=== PATIENT | male | born 1955 | race Caucasian/White ===

== ENCOUNTER → 2016-09-06 | Outpatient (CLI) | payer SELFPAY ==
[2016-09-06 15:18] LABS: MEAN CORPUSCULAR HEMOGLOBIN 21.2 pg (27.0-33.0); MEAN CORPUSCULAR HGB CONC 28.3 g/dl (32.0-36.5); MEAN CORPUSCULAR VOLUME 74.8 fl (80.0-96.0); RED CELL DISTRIBUTION WIDTH 20.4 % (11.5-14.5); WHITE BLOOD COUNT 10.7 K/mm3 (4.0-10.0)
[2016-09-06 15:47] LABS: ALBUMIN 3.2 GM/DL (3.2-5.2); ALBUMIN/GLOBULIN RATIO 0.76 (1.00-1.93); BILIRUBIN,TOTAL 0.3 MG/DL (0.2-1.0); CALCIUM LEVEL 8.5 MG/DL (8.5-10.1); CREATININE FOR GFR 1.32 MG/DL (0.70-1.30); GLOMERULAR FILTRATION RATE 59.1 (>56); TOTAL PROTEIN 7.4 GM/DL (6.4-8.2)
== END ==
LOC: M LAB 14:41
PROVIDERS: ATTEND Family Medicine
DX: E11.69 Type 2 diabetes mellitus with other specified complication (principal)

== ENCOUNTER → 2016-11-18 | Outpatient (CLI) | payer SELFPAY ==
--- NOTE | 2016-12-06 00:49 | ECWPNPC ---
PATIENT NAME: IVON BARTON : 1955 GENDER: MALE VISIT DATE: 11/18/2016 DISCHARGE DATE: 11/18/16 1530 VISIT LOCKED DATE TIME: PHYSICIAN: RAMIN BENÍTEZ RESOURCE: RAMIN BENÍTEZ REASON FOR APPOINTMENT 1. BACK PAIN HISTORY OF PRESENT ILLNESS FALL RISK SCREENING: SCREENING :NO FALLS IN THE PAST YEAR PAIN SCREENING: PATIENT HAS A COMPLAINT OF ACUTE OR CHRONIC PAIN :YES TODAY'S VISIT: NOTES: REFERRED BY DR ISAMAR MITCHELL FOR LOW BACK AND LEG PAIN. RATES PAIN TODAY 7/10. DESCRIBES PAIN WAS INJURED ON THE JOB 1993 WAS LIFTING A HEAVY CASTING AND HURT. WAS SEEN BY PT, PAIN MANAGEMENT, HAD INJECTIONS, ACCUPUNCTURE, TPI, NOTED NO IMPROVEMET AND NOW FEELS BACK IS GETTING WORK. PAIN HAS BEEN GENERALLY INCREASING. HAS PAIN IN CALVES WITH CRAMPING BOTH LEGS. HAS N/T IN FEET, AND SCIATIC PAIN R>L. NO SADDLE NUMBNESS. OCCASIONAL CONSP WITH VICODAN. NO RECENT FALLS. HAS SEEN DR GARCIA VASCULAR SURGEON- [facility] , [place] BUT NOT CANDIDATE IS ON XARALTO (X1 YEAR). . CURRENT MEDICATIONS TAKING NEURONTIN 800 MG TABLET 1 TABLET ORALLY THREE TIMES A DAY TAKING AMIODARONE HCL 400 MG TABLET 2 TABLET ORALLY THREE TIMES DAILY TAKING ATENOLOL 50 MG TABLET 1 TABLET ORALLY ONCE A DAY TAKING PANTOPRAZOLE SODIUM 40 MG TABLET DELAYED RELEASE 1 TABLET ORALLY BID TAKING DIGOXIN 250 MCG TABLET 1 TABLET ORALLY ONCE A DAY TAKING XARELTO 20 MG TABLET 1 TABLET WITH FOOD ORALLY ONCE A DAY TAKING TRESIBA FLEXTOUCH 100 UNIT/ML SOLUTION PEN-INJECTOR SUBCUTANEOUS TAKING NOVOLOG FLEXPEN 100 UNIT/ML SOLUTION PEN-INJECTOR SUBCUTANEOUS TAKING MENS 50+ MULTI VITAMIN/MIN - TABLET ORALLY TAKING GABAPENTIN 800 MG TABLET 1 TABLET ORALLY THREE TIMES A DAY NOT-TAKING ZETIA 10 MG TABLET 1 TABLET ORALLY ONCE A DAY NOT-TAKING ASPIRIN 325 MG TABLET DELAYED RELEASE 1 TABLET ORALLY ONCE A DAY NOT-TAKING TRAMADOL HCL 50 MG TABLET 1 TAB ORALLY EVERY 6 HOURS NEEDED/MMD#4 MEDICATION LIST REVIEWED AND RECONCILED WITH THE PATIENT PAST MEDICAL HISTORY NEURALGIA SLEEP DISTURBANCE VISION PROBLEMS 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 SURGICAL HISTORY BILAT ARTERIES IN LEGS REPLACED 8 TIMES 2015 FAMILY HISTORY FATHER: 40 YRS, DIAGNOSED WITH CANCER MOTHER: 71 YRS, DIAGNOSED WITH CANCER SOCIAL HISTORY GENERAL: TOBACCO USE ARE YOU A:CURRENT SMOKER HOW MANY CIGARETTES A DAY DO YOU SMOKE?31 OR MORE HOW SOON AFTER YOU WAKE UP DO YOU SMOKE YOUR FIRST CIGARETTE?WITHIN 5 MIN HOW OFTEN DO YOU SMOKE CIGARETTES?EVERY DAY PATIENT COUNSELED ON THE DANGERS OF TOBACCO USE AND URGED TO QUIT:11/18/2016 ARE YOU INTERESTED IN QUITTING?NOT READY TO QUIT COUNSELED THE PATIENT ON SMOKING EFFECTS, EDUCATION [id number]/19/2017 ALCOHOL SCREENING POINTS0 INTERPRETATIONNEGATIVE CAFFEINE CAFFEINE USE?YES REVIEW OF SYSTEMS CONSTITUTIONAL: ANY CHANGE IN YOUR MEDICAL CONDITION? YES. PT STATES HE HAS A LESION ON RIGHT CHEEK X 3 YEARS. PT STATES LESION HAS GROWN IN SIZE AND LESION CHANGES FORM FROM TIME TO TIME. PT SUSPECTS LESION IS CANCER, BUT HAS NOT HAD BX DONE PT HAS NO HEALTH INSURANCE. . CHILLS NO . FEVER NO . INFECTION: DO YOU HAVE NEW INFECTIONS? NO . DO YOU HAVE HISTORY OF MRSA? NO . MUSCULOSKELETAL: ANY NEW PATTERNS OF PAIN OR NUMBNESS? YES. PT STATES HE INJURED HIMSELF AT WORK [id number], SOUGHT MEDICAL [place] THROUGH [employer]. PT STATES HE HAS NOT WORKED SINCE 1992. PT HAS BEEN SEEING Aleida MITCHELL PCP, PT WAS REFERED HERE FOR CHRONIC PAIN CONTROL . SYTEMIC LUPUS NO . GASTROENTEROLOGY: ANY NEW CHANGE IN BOWEL CONTROL? NO . BARRETTS ESOPHAGUS NO . CIRRHOSIS NO . HEPATITIS NO . LIVER FAILURE NO . ACID REFLUX NO . UNEXPLAINED WEIGHT LOSS NO . GENITOURINARY: ANY NEW CHANGE IN BLADDER CONTROL? NO . IS THERE A CHANCE YOU COULD BE ? NO . HEMATOLOGY/LYMPH: DO YOU TAKE ANY BLOOD THINNERS? (FOR EXAMPLE- COUMADIN, PLAVIX, AGGRENOX, PLATEL, PRADAXA, OR XARELTO) YES, XARELTO . WHEN WAS YOUR LAST DOSE? DATE: TIME: . LOW PLATELET COUNT NO . SICKLE CELL DISEASE NO . VON WILLIEBRANDS NO . FACTOR V LEIDEN NO . THALLASEMIA NO . ANEMIA NO . EASY BRUISING NO . NEUROLOGY: HAVE YOU FALLEN IN THE PAST 6 MONTHS? NO . ANY NEW EXTREMITY NUMBNESS OR WEAKNESS? NO . HEAD INJURY NO . DEMENTIA NO . CEREBRAL PALSY NO . MULTIPLE SCLEROSIS NO . DIZZINESS NO . HEADACHE NO . STROKES NO . VERTIGO NO . CARDIOLOGY: DO YOU HAVE A PACEMAKER OR DEFIBRILLATOR? NO . ANGINA NO . HEART ATTACK HAD CATH - NEEDED STENTS BEFORE LEG SURGERY. . HEART SURGERY NO . CONGESTIVE HEART FAILURE/FLUID OVERLOAD NO . CHEST PAIN NO . CLAUDICATION BILAT LOWER EXTREMITIES - HAS MULTIPLE STENTS . HIGH BLOOD PRESSURE NO . IRREGULAR HEART BEAT NO BUT WAS PUT ON XARALTO FOR THIS . RESPIRATORY: HAVE YOU BEEN SICK IN THE PAST WEEK? NO . FEVER NO . FLU LIKE SYMPTOMS? NO . CPAP NO . BYPAP NO . ASTHMA NO . EMPHYSEMA NO . CHRONIC LUNG DISEASES NO . SHORTNESS OF BREATH ON EXERTION NO . DO YOU USE ANY TYPE OF TOBACCO (SMOKE, SMOKELESS, CHEW)? YES - NOT INTERESTED IN QUITTING . COUGH NO . SNORING NO . INTEGUMENTARY: DO YOU HAVE ANY RASHES OR OPEN SORES? NO . ALLERGIC/IMMUNO: ARE YOU ALLERGIC TO SHELLFISH OR IV DYE? NO . ANY NEW ALLERGIES? NO . PSYCHIATRIC: DO YOU HAVE THOUGHTS OF HURTING YOURSELF OR SOMEONE ELSE? NO . ARE YOU ABUSED, NEGLECTED, OR IN AN UNSAFE ENVIRONMENT? NO . ENDOCRINOLOGY: ARE YOU DIABETIC? YES WAS JUST DX IN LAST YEAR - 214 TODAY. . THYROID DISORDER NO . OTHER: DO YOU NEED ANY PRESCRIPTIONS? NO . IF YES, PLEASE LIST: ____ . ANY NEW PROBLEMS WITH YOUR MEDICATIONS? NO . WHEN DID YOU LAST EAT? ____ . WHEN DID YOU LAST DRINK? ____ . WHAT DID YOU LAST DRINK? ____ . NAME OF PERSON DRIVING YOU HOME? ____ . DO YOU HAVE ANY OTHER QUESTIONS OR CONCERNS NO . PSYCHOLOGY: BECKS DEPRESSION INVENTORY . DENIES SUICIDAL OR HOMICIDAL IDEATION . REVIEWED BY: PROVIDER: RAMIN RAMIREZ . VITAL SIGNS WT 180.4 LBS, HT 67", BMI 28.25 INDEX, BP 133/67 MM HG, HR 65 /MIN, RR 16 /MIN, TEMP 98.3 F, OXYGEN SAT % 97%, SAFE IN ENV? (Y/N) Y, NA INITIALS TL 1329, REVIEWED BY: EM. EXAMINATION GENERAL EXAMINATION: PSYCHALERT , ORIENTED X 3 , SOME ANXIETY NOTED. HEENT:NORMOCEPHALIC, NO LYMPHADENOPATHY, NO THYROMEGY. LUNGS:CLEAR TO AUSCULTATION BILATERALLY, DECREASED AIR ENTRY AT BASES, NO WHEEZES. HEART:HEART RATE REGULAR, NO CAROTID BRUITS,, NORMAL S1S2, NO MURMURS, CLICK OR RUBS. MUSCULOSKELETAL:CAN FLEX TO 15 DEGREES, EXTEND TO 15 DEGREES. TENDER TO PALPATION ACROSS THE LUMBOSACRAL AXIS AND BILATERALLY AT SACROILIAC JOINTS. NO PAIN WITH SLR. , MUSCLE STRENGTH TESTING 5/5 BILATERAL LOWER EXTREMITIES. SLOW TO RISE TO STANDING POSITION. GAIT WIDE BASED, NONANTALGIC. SOME DISCOMFORT OVER BACK AND HIPS BILATERALLY WITH PELVIC COMPRESSION. POSITIVE FPR PAIN IN BACK WITH ANN-MARIE'S TESTING. EXTREMITIES:CLUBING, DUSKY TOES. DP PULSES TRCE BILATRALLY. TRACE EDEMA NOTED BILATERAL LOWER EXTREMITI. NEUROLOGIC EXAM:DECRESED SENSATION IN STOCKING/GLOVE PATTERN OVER BILATERAL FEET TO LEVEL OF ANKLE. DTR'S TRACE TO 1+ BILATERAL UPPER AND LOWER EXTREMITIES. 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 BEGIN PLAN FOR SMOKING CESSATION. DISPOSITION & COMMUNICATION FOLLOW UP 26-28 DAYS (REASON: MED MANAGEMENT/XRAY) ELECTRONICALLY SIGNED BY BRENNAN WOLFF ON 12/05/2016 AT 06:26 PM EDT DISCLAIMER : THIS IS A VISIT SUMMARY EXTRACTED FROM THE [employer] CHART. IT IS NOT A COPY OF THE [employer] PROGRESS NOTE. MTDD
== END ==
LOC: M PAIN 13:20
PROVIDERS: ATTEND Nurse Practitioner Family
DX: G89.29 Other chronic pain (principal); M54.42 Lumbago with sciatica, left side; M54.41 Lumbago with sciatica, right side; E11.42 Type 2 diabetes mellitus with diabetic polyneuropathy; I73.9 Peripheral vascular disease, unspecified; I25.2 Old myocardial infarction; J44.9 Chronic obstructive pulmonary disease, unspecified; F17.210 Nicotine dependence, cigarettes, uncomplicated; L98.9 Disorder of the skin and subcutaneous tissue, unspecified; Z79.01 Long term (current) use of anticoagulants; Z79.4 Long term (current) use of insulin; Z79.899 Other long term (current) drug therapy

== ENCOUNTER → 2016-11-18 | Outpatient (CLI) | payer SELFPAY ==
--- NOTE | 2016-11-18 16:22 | REP ---
Clinical: Lower back pain and sciatica. Technique: AP, lateral, flexion/extension, bilateral oblique and coned-down views of the lumbosacral spine. Findings: Alignment and lordosis is maintained. There is no evidence for acute fracture / compression injury or subluxation. No spondylolysis or spondylolisthesis. Moderate multilevel degenerative changes include marginal early osteophyte formation, endplate sclerosis, disc space narrowing and hypertrophic facet changes. Impression: Moderate multilevel degenerative changes. No acute fracture / compression injury or subluxation. Signed by Valdez Strickland MD 11/18/2016 04:13 P
== END ==
LOC: M RAD 15:43
PROVIDERS: ATTEND Nurse Practitioner Family
DX: M54.42 Lumbago with sciatica, left side (principal)

== ENCOUNTER → 2016-12-16 | Outpatient (CLI) | payer SELFPAY ==
--- NOTE | 2016-12-31 00:20 | ECWPNPC ---
PATIENT NAME: IVON BARTON : 1955 GENDER: MALE VISIT DATE: 12/16/2016 DISCHARGE DATE: 12/16/16 1447 VISIT LOCKED DATE TIME: PHYSICIAN: RAMIN BENÍTEZ RESOURCE: RAMIN BENÍTEZ HISTORY OF PRESENT ILLNESS HISTORY OF PRESENT ILLNESS: PAIN THE PATIENT DESCRIBES THE PAIN... FALL RISK SCREENING: SCREENING :NO FALLS IN THE PAST YEAR TODAY'S VISIT: NOTES: RATES PAIN TODAY 9/10. LEFT FOOT/GREAT TOE - WAS PUT ON AN ABX - DOES NOT KNOW THE NAME. NOTES GENERALIZED PAIN IN LOW BACK AND BOTH LEGS BUT PAIN WORSE IMMEDIATELY AFTER ATTEMPTING TO WALK WITH TEETEE OF PAIN IN LEFT CALF AND FOOT. . CURRENT MEDICATIONS TAKING AMIODARONE HCL 400 MG TABLET 2 TABLET ORALLY THREE TIMES DAILY, NOTES: PT NOT SURE OF DOSE OR FREQUENCY TAKING ATENOLOL 50 MG TABLET 1 TABLET ORALLY ONCE A DAY TAKING PANTOPRAZOLE SODIUM 40 MG TABLET DELAYED RELEASE 1 TABLET ORALLY BID TAKING DIGOXIN 250 MCG TABLET 1 TABLET ORALLY ONCE A DAY TAKING XARELTO 20 MG TABLET 1 TABLET WITH FOOD ORALLY ONCE A DAY TAKING TRESIBA FLEXTOUCH 100 UNIT/ML SOLUTION PEN-INJECTOR SUBCUTANEOUS TAKING NOVOLOG FLEXPEN 100 UNIT/ML SOLUTION PEN-INJECTOR SUBCUTANEOUS TAKING MENS 50+ MULTI VITAMIN/MIN - TABLET ORALLY TAKING GABAPENTIN 800 MG TABLET 1 TABLET ORALLY THREE TIMES A DAY NOT-TAKING NEURONTIN 800 MG TABLET 1 TABLET ORALLY THREE TIMES A DAY NOT-TAKING ZETIA 10 MG TABLET 1 TABLET ORALLY ONCE A DAY NOT-TAKING ASPIRIN 325 MG TABLET DELAYED RELEASE 1 TABLET ORALLY ONCE A DAY NOT-TAKING TRAMADOL HCL 50 MG TABLET 1 TAB ORALLY EVERY 6 HOURS NEEDED/MMD#4 MEDICATION LIST REVIEWED AND RECONCILED WITH THE PATIENT PAST MEDICAL HISTORY NEURALGIA SLEEP DISTURBANCE VISION PROBLEMS 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 SURGICAL HISTORY BILAT ARTERIES IN LEGS REPLACED 8 TIMES 2015 FAMILY HISTORY FATHER: 40 YRS, DIAGNOSED WITH CANCER MOTHER: 71 YRS, DIAGNOSED WITH CANCER SOCIAL HISTORY GENERAL: TOBACCO USE ARE YOU A:CURRENT SMOKER HOW MANY CIGARETTES A DAY DO YOU SMOKE?31 OR MORE HOW SOON AFTER YOU WAKE UP DO YOU SMOKE YOUR FIRST CIGARETTE?WITHIN 5 MIN HOW OFTEN DO YOU SMOKE CIGARETTES?EVERY DAY PATIENT COUNSELED ON THE DANGERS OF TOBACCO USE AND URGED TO QUIT:11/18/2016 ARE YOU INTERESTED IN QUITTING?NOT READY TO QUIT COUNSELED THE PATIENT ON SMOKING EFFECTS, EDUCATION [id number]/19/2017 ALCOHOL SCREENING DID YOU HAVE A DRINK CONTAINING ALCOHOL IN THE PAST YEAR?NO POINTS0 INTERPRETATIONNEGATIVE CAFFEINE CAFFEINE USE?YES HOSPITALIZATION/MAJOR DIAGNOSTIC PROCEDURE SURGERIES REVIEW OF SYSTEMS REVIEWED BY: PROVIDER: RAMIN RAMIREZ . CONSTITUTIONAL: ANY CHANGE IN YOUR MEDICAL CONDITION? YES, SKIN CANCER RIGHT FACE, INFECTION GREAT TOE LEFT FOOT . CHILLS NO . FEVER NO . INFECTION: DO YOU HAVE NEW INFECTIONS? NO . DO YOU HAVE HISTORY OF MRSA? NO . MUSCULOSKELETAL: ANY NEW PATTERNS OF PAIN OR NUMBNESS? NO . GASTROENTEROLOGY: ANY NEW CHANGE IN BOWEL CONTROL? NO . GENITOURINARY: ANY NEW CHANGE IN BLADDER CONTROL? NO . IS THERE A CHANCE YOU COULD BE ? NO . HEMATOLOGY/LYMPH: DO YOU TAKE ANY BLOOD THINNERS? (FOR EXAMPLE- COUMADIN, PLAVIX, AGGRENOX, PLATEL, PRADAXA, OR XARELTO) NO . WHEN WAS YOUR LAST DOSE? DATE: TIME: . NEUROLOGY: HAVE YOU FALLEN IN THE PAST 6 MONTHS? NO . ANY NEW EXTREMITY NUMBNESS OR WEAKNESS? NO . CARDIOLOGY: DO YOU HAVE A PACEMAKER OR DEFIBRILLATOR? NO . RESPIRATORY: HAVE YOU BEEN SICK IN THE PAST WEEK? NO . FEVER NO . FLU LIKE SYMPTOMS? NO . COUGH NO . INTEGUMENTARY: DO YOU HAVE ANY RASHES OR OPEN SORES? NO . ALLERGIC/IMMUNO: ARE YOU ALLERGIC TO SHELLFISH OR IV DYE? NO . ANY NEW ALLERGIES? NO . PSYCHIATRIC: DO YOU HAVE THOUGHTS OF HURTING YOURSELF OR SOMEONE ELSE? NO . ARE YOU ABUSED, NEGLECTED, OR IN AN UNSAFE ENVIRONMENT? NO . ENDOCRINOLOGY: ARE YOU DIABETIC? YES - 185 MOST RECENT . OTHER: DO YOU NEED ANY PRESCRIPTIONS? YES . IF YES, PLEASE LIST: PAIN MEDICATION AND CHANGE TO GABAPENTIN . ANY NEW PROBLEMS WITH YOUR MEDICATIONS? NO . WHEN DID YOU LAST EAT? ____ . WHEN DID YOU LAST DRINK? ____ . WHAT DID YOU LAST DRINK? ____ . NAME OF PERSON DRIVING YOU HOME? ____ . DO YOU HAVE ANY OTHER QUESTIONS OR CONCERNS NO . PSYCHOLOGY: HIGH STRESS LEVEL OVER FINANCIAL SITUATION . VITAL SIGNS WT 180.6 LBS, HT 67", BMI 28.28 INDEX, BP 127/59 MM HG, HR 68 /MIN, RR 18 /MIN, TEMP 98.2 F, OXYGEN SAT % 96%, NA INITIALS TL 1358, REVIEWED BY: JUSTIN. EXAMINATION GENERAL EXAMINATION: PSYCHALERT , ORIENTED X 3 , APPROPRIATE MOOD AND AFFECT , HARD OF HEARING. FACE:LARGE BLACK SKIN LESION FROM NASOLABIAL FOLD ACROSS CHEEKAPPROX 3 CM IN DIAMETER. LUNGS:SCATTERED WHEEZES, DECREASED BREATH SOUNDS AT BASES. HEART:HEART RATE REGULAR. MUSCULOSKELETAL:PALPATION: POSITIVE FOR PAIN OVER L/S SPINE. POSITIVE FOR PAIN OVER L/S PARSPINALS. EXTREMITIES:LEFT FOOT INSTECTED - COLD, DUSKY BLUE IN COLOR, AREA OFERYTHEMA NOTED ALONG MEDIAL ASPECT OF LEFT GREAT TOE NAIL. NO DRAINAGE. AREA EDEMATOUS. WEARING MUDDY SNEAKERS - NO SOCKS. 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 CLINICAL NOTES: ISTOP REGISTRY REVIEWED AND DEMNOSTRATES COMPLLIANCE. BRINGS IN MEDICATIONS WHICH IS APPROPRIATE FOR WHAT WAS DISPENSED. RECENT URINE TOXICOLOGY REVIEWED. NO UNAUTHORIZED MEDICATIONS. NO ILLICIT SUBSTANCES AND PRESCRIBED MEDICATIONS WERE PRESENT. PROCEDURE CODES FA211 ESTABILISHED PATIENT [facility] CHARGE DISPOSITION & COMMUNICATION FOLLOW UP 26-28 DAYS (REASON: LEG PAIN) ELECTRONICALLY SIGNED BY BRENNAN WOLFF ON 12/30/2016 AT 05:28 PM EDT DISCLAIMER : THIS IS A VISIT SUMMARY EXTRACTED FROM THE [employer] CHART. IT IS NOT A COPY OF THE [employer] PROGRESS NOTE. JAVY
== END ==
LOC: M PAIN 14:00
PROVIDERS: ATTEND Nurse Practitioner Family
DX: M54.42 Lumbago with sciatica, left side (principal); M54.41 Lumbago with sciatica, right side; G89.29 Other chronic pain; E11.42 Type 2 diabetes mellitus with diabetic polyneuropathy; I73.9 Peripheral vascular disease, unspecified; Z79.4 Long term (current) use of insulin; Z79.899 Other long term (current) drug therapy

== ENCOUNTER → 2017-01-11 | Outpatient (CLI) | payer SELFPAY ==
--- NOTE | 2017-02-04 01:18 | ECWPNPC ---
PATIENT NAME: IVON BARTON : 1955 GENDER: MALE VISIT DATE: 01/11/2017 DISCHARGE DATE: 01/11/17 1258 VISIT LOCKED DATE TIME: PHYSICIAN: RAMIN BENÍTEZ RESOURCE: RAMIN BENÍTEZ REASON FOR APPOINTMENT 1. LEG PAIN HISTORY OF PRESENT ILLNESS HISTORY OF PRESENT ILLNESS: PAIN THE PATIENT DESCRIBES THE PAIN... FALL RISK SCREENING: SCREENING :NO FALLS IN THE PAST YEAR TODAY'S VISIT: NOTES: RATES PAIN TODAY 3/10. DESCRIBES PAIN CONSTANT, BURNING, SHARP AND STABBING. PAIN IS CENTERED ACROSS THE LOW BACK WITH RADIATION DOWN BOTH LEGS TO THE FEET. . CURRENT MEDICATIONS TAKING AMIODARONE HCL 400 MG TABLET 2 TABLET ORALLY THREE TIMES DAILY, NOTES: PT NOT SURE OF DOSE OR FREQUENCY TAKING ATENOLOL 50 MG TABLET 1 TABLET ORALLY ONCE A DAY TAKING PANTOPRAZOLE SODIUM 40 MG TABLET DELAYED RELEASE 1 TABLET ORALLY BID TAKING DIGOXIN 250 MCG TABLET 1 TABLET ORALLY ONCE A DAY TAKING XARELTO 20 MG TABLET 1 TABLET WITH FOOD ORALLY ONCE A DAY TAKING TRESIBA FLEXTOUCH 100 UNIT/ML SOLUTION PEN-INJECTOR SUBCUTANEOUS TAKING MENS 50+ MULTI VITAMIN/MIN - TABLET ORALLY TAKING GABAPENTIN 800 MG TABLET 1 TABLET ORALLY THREE TIMES A DAY TAKING NORCO 10-325 MG TABLET 1 TABLET NEEDED ORALLY EVERY 6 -8 HRS PRN PAIN MDD=3 TAKING HUMALOG MIX 50/50 KWIKPEN (50-50) 100 UNIT/ML SUSPENSION SUBCUTANEOUS NOT-TAKING NOVOLOG FLEXPEN 100 UNIT/ML SOLUTION PEN-INJECTOR SUBCUTANEOUS NOT-TAKING NEURONTIN 800 MG TABLET 1 TABLET ORALLY THREE TIMES A DAY NOT-TAKING ZETIA 10 MG TABLET 1 TABLET ORALLY ONCE A DAY NOT-TAKING ASPIRIN 325 MG TABLET DELAYED RELEASE 1 TABLET ORALLY ONCE A DAY NOT-TAKING TRAMADOL HCL 50 MG TABLET 1 TAB ORALLY EVERY 6 HOURS NEEDED/MMD#4 MEDICATION LIST REVIEWED AND RECONCILED WITH THE PATIENT PAST MEDICAL HISTORY NEURALGIA SLEEP DISTURBANCE VISION PROBLEMS 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 SOCIAL HISTORY GENERAL: TOBACCO USE ARE YOU A:CURRENT SMOKER HOW MANY CIGARETTES A DAY DO YOU SMOKE?31 OR MORE HOW SOON AFTER YOU WAKE UP DO YOU SMOKE YOUR FIRST CIGARETTE?WITHIN 5 MIN HOW OFTEN DO YOU SMOKE CIGARETTES?EVERY DAY PATIENT COUNSELED ON THE DANGERS OF TOBACCO USE AND URGED TO QUIT:01/11/2017 ARE YOU INTERESTED IN QUITTING?NOT READY TO QUIT COUNSELED THE PATIENT ON SMOKING EFFECTS, EDUCATION [id number]/12/2017 ALCOHOL SCREENING DID YOU HAVE A DRINK CONTAINING ALCOHOL IN THE PAST YEAR?NO POINTS0 INTERPRETATIONNEGATIVE CAFFEINE CAFFEINE USE?YES REVIEW OF SYSTEMS REVIEWED BY: PROVIDER: RAMIN RAMIREZ . CONSTITUTIONAL: ANY CHANGE IN YOUR MEDICAL CONDITION? NO . CHILLS NO . FEVER NO . INFECTION: DO YOU HAVE NEW INFECTIONS? NO . DO YOU HAVE HISTORY OF MRSA? NO . MUSCULOSKELETAL: ANY NEW PATTERNS OF PAIN OR NUMBNESS? NO . GASTROENTEROLOGY: ANY NEW CHANGE IN BOWEL CONTROL? YES,CONSTIPATION . GENITOURINARY: ANY NEW CHANGE IN BLADDER CONTROL? NO . IS THERE A CHANCE YOU COULD BE ? NO . HEMATOLOGY/LYMPH: DO YOU TAKE ANY BLOOD THINNERS? (FOR EXAMPLE- COUMADIN, PLAVIX, AGGRENOX, PLATEL, PRADAXA, OR XARELTO) YES - XARALTO . WHEN WAS YOUR LAST DOSE? DATE: TIME: 01/11/17@0730 . NEUROLOGY: HAVE YOU FALLEN IN THE PAST 6 MONTHS? NO . ANY NEW EXTREMITY NUMBNESS OR WEAKNESS? NO . CARDIOLOGY: DO YOU HAVE A PACEMAKER OR DEFIBRILLATOR? NO . RESPIRATORY: HAVE YOU BEEN SICK IN THE PAST WEEK? NO . FEVER NO . FLU LIKE SYMPTOMS? NO . COUGH NO . INTEGUMENTARY: DO YOU HAVE ANY RASHES OR OPEN SORES? YES . ALLERGIC/IMMUNO: ARE YOU ALLERGIC TO SHELLFISH OR IV DYE? YES . ANY NEW ALLERGIES? NO . PSYCHIATRIC: DO YOU HAVE THOUGHTS OF HURTING YOURSELF OR SOMEONE ELSE? NO . ARE YOU ABUSED, NEGLECTED, OR IN AN UNSAFE ENVIRONMENT? NO . ENDOCRINOLOGY: ARE YOU DIABETIC? NO . OTHER: DO YOU NEED ANY PRESCRIPTIONS? NO . IF YES, PLEASE LIST: ____ . ANY NEW PROBLEMS WITH YOUR MEDICATIONS? NO . WHEN DID YOU LAST EAT? ____ . WHEN DID YOU LAST DRINK? ____ . WHAT DID YOU LAST DRINK? ____ . NAME OF PERSON DRIVING YOU HOME? ____ . DO YOU HAVE ANY OTHER QUESTIONS OR CONCERNS NO . VITAL SIGNS WT 180.2 LBS, HT 67", BMI 28.22 INDEX, BP 114/54 MM HG, HR 62 /MIN, RR 16 /MIN, TEMP 98.2 F, OXYGEN SAT % 96%, NA INITIALS SC 12:09, REVIEWED BY: LUI. EXAMINATION GENERAL EXAMINATION: PSYCHALERT , ORIENTED X 3 , APPROPRIATE MOOD AND AFFECT , HARD OF HEARING. FACE:LARGE BLACK SKIN LESION FROM NASOLABIAL FOLD ACROSS CHEEKAPPROX 3 CM IN DIAMETER. LUNGS:SCATTERED WHEEZES, DECREASED BREATH SOUNDS AT BASES. HEART:HEART RATE REGULAR. MUSCULOSKELETAL:PALPATION: POSITIVE FOR PAIN OVER L/S SPINE. POSITIVE FOR PAIN OVER L/S PARSPINALS. EXTREMITIES:LEFT FOOT- COLD, DUSKY BLUE IN COLOR, AREA OFERYTHEMA NOTED ALONG MEDIAL ASPECT OF LEFT GREAT TOE NAIL. NO DRAINAGE. AREA EDEMATOUS.. 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 CLINICAL NOTES: ISTOP REGISTRY REVIEWED AND DEMNOSTRATES COMPLLIANCE. BRINGS IN MEDICATIONS WHICH IS APPROPRIATE FOR WHAT WAS DISPENSED., RISKS AND BENEFITS OF NARCOTIC/OPIOD MEDICATIONS WERE REVIEWED WITH PATIENT - THIS INCLUDES BUT IS NOT LIMITED TO RISK OF DEPENDANCE/DEVELOPMENT OF ADDICTION, MOOD DISTURBANCE AND DEPRESSION, OSTEOPOROSIS, HORMONAL AND LABIDAL CHANGES, RESPIRATORY DEPRESSION AND . PATIENT IS ADVISED NOT TO DRIVE WHILE ON THESE MEDICATIONS. PROCEDURE CODES FA211 ESTABILISHED PATIENT [facility] CHARGE DISPOSITION & COMMUNICATION FOLLOW UP 26-28 DAYS (REASON: LEGS AND BACK) ELECTRONICALLY SIGNED BY BRENNAN WOLFF ON 02/03/2017 AT 05:35 PM EDT DISCLAIMER : THIS IS A VISIT SUMMARY EXTRACTED FROM THE [employer] CHART. IT IS NOT A COPY OF THE [employer] PROGRESS NOTE. MTDD
== END ==
LOC: M PAIN 12:00
PROVIDERS: ATTEND Nurse Practitioner Family
DX: G89.29 Other chronic pain (principal); M54.42 Lumbago with sciatica, left side; M54.41 Lumbago with sciatica, right side; K59.00 Constipation, unspecified; E11.42 Type 2 diabetes mellitus with diabetic polyneuropathy; I11.9 Hypertensive heart disease without heart failure; J43.9 Emphysema, unspecified; I73.9 Peripheral vascular disease, unspecified; K21.9 Gastro-esophageal reflux disease without esophagitis; I25.2 Old myocardial infarction; F17.210 Nicotine dependence, cigarettes, uncomplicated; Z79.01 Long term (current) use of anticoagulants; Z79.4 Long term (current) use of insulin; Z79.899 Other long term (current) drug therapy

== ENCOUNTER → 2017-02-06 | Outpatient (CLI) | payer SELFPAY ==
--- NOTE | 2017-02-25 23:33 | ECWPNPC ---
PATIENT NAME: IVON BARTON : 1955 GENDER: MALE VISIT DATE: 02/06/2017 DISCHARGE DATE: 02/06/17 1112 VISIT LOCKED DATE TIME: PHYSICIAN: RAMIN BENÍTEZ RESOURCE: RAMIN BENÍTEZ REASON FOR APPOINTMENT 1. 26-28 DAYS HISTORY OF PRESENT ILLNESS HISTORY OF PRESENT ILLNESS: PAIN THE PATIENT DESCRIBES THE PAIN... FALL RISK SCREENING: SCREENING :NO FALLS IN THE PAST YEAR TODAY'S VISIT: NOTES: RATES PAIN TODAY 9/10. DESCRIBES PAIN CONSTANT AND BURNING. PAIN EXTENDS FROM LOW BACK TO FEET. IS HAVING NEW PAIN IN LEFT FOOTACROSS THE DORSUM. LEFT GREAT TOE STILL WITH INFLAMMED AREA.. CURRENT MEDICATIONS TAKING AMIODARONE HCL 400 MG TABLET 2 TABLET ORALLY THREE TIMES DAILY, NOTES: PT NOT SURE OF DOSE OR FREQUENCY TAKING ATENOLOL 50 MG TABLET 1 TABLET ORALLY ONCE A DAY TAKING PANTOPRAZOLE SODIUM 40 MG TABLET DELAYED RELEASE 1 TABLET ORALLY BID TAKING DIGOXIN 250 MCG TABLET 1 TABLET ORALLY ONCE A DAY TAKING XARELTO 20 MG TABLET 1 TABLET WITH FOOD ORALLY ONCE A DAY TAKING TRESIBA FLEXTOUCH 100 UNIT/ML SOLUTION PEN-INJECTOR SUBCUTANEOUS TAKING MENS 50+ MULTI VITAMIN/MIN - TABLET ORALLY TAKING GABAPENTIN 800 MG TABLET 1 TABLET ORALLY THREE TIMES A DAY TAKING HUMALOG MIX 50/50 KWIKPEN (50-50) 100 UNIT/ML SUSPENSION SUBCUTANEOUS TAKING NORCO 5-325 MG TABLET 1 TABLET NEEDED ORALLY EVERY 6 -8 HRS PRN PAIN MDD=3 NOT-TAKING LIDOCAINE HCL 4 % SOLUTION DIRECTED EXTERNALLY APPLY SMALL AMOUNT TO PAINFUL AREAS OF FEET Q 6 HRS PRN PAIN NOT-TAKING NOVOLOG FLEXPEN 100 UNIT/ML SOLUTION PEN-INJECTOR SUBCUTANEOUS NOT-TAKING NEURONTIN 800 MG TABLET 1 TABLET ORALLY THREE TIMES A DAY NOT-TAKING ZETIA 10 MG TABLET 1 TABLET ORALLY ONCE A DAY NOT-TAKING ASPIRIN 325 MG TABLET DELAYED RELEASE 1 TABLET ORALLY ONCE A DAY NOT-TAKING TRAMADOL HCL 50 MG TABLET 1 TAB ORALLY EVERY 6 HOURS NEEDED/MMD#4 MEDICATION LIST REVIEWED AND RECONCILED WITH THE PATIENT PAST MEDICAL HISTORY NEURALGIA SLEEP DISTURBANCE VISION PROBLEMS 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 CONSTITUTIONAL: ANY CHANGE IN YOUR MEDICAL CONDITION? NO . CHILLS NO . FEVER NO . INFECTION: DO YOU HAVE NEW INFECTIONS? NO . DO YOU HAVE HISTORY OF MRSA? NO . MUSCULOSKELETAL: ANY NEW PATTERNS OF PAIN OR NUMBNESS? YES, PT C/O LEFT FOOT PAIN . GASTROENTEROLOGY: ANY NEW CHANGE IN BOWEL CONTROL? YES, WAS CONSTIPATED, ALL BETTER NOW . GENITOURINARY: ANY NEW CHANGE IN BLADDER CONTROL? NO . IS THERE A CHANCE YOU COULD BE ? NO . HEMATOLOGY/LYMPH: DO YOU TAKE ANY BLOOD THINNERS? (FOR EXAMPLE- COUMADIN, PLAVIX, AGGRENOX, PLATEL, PRADAXA, OR XARELTO) YES, XARELTO . WHEN WAS YOUR LAST DOSE? DATE: TIME: . NEUROLOGY: HAVE YOU FALLEN IN THE PAST 6 MONTHS? NO . ANY NEW EXTREMITY NUMBNESS OR WEAKNESS? NO . CARDIOLOGY: DO YOU HAVE A PACEMAKER OR DEFIBRILLATOR? NO . RESPIRATORY: HAVE YOU BEEN SICK IN THE PAST WEEK? NO . FEVER NO . FLU LIKE SYMPTOMS? NO . COUGH NO . INTEGUMENTARY: DO YOU HAVE ANY RASHES OR OPEN SORES? YES, TO RIGHT CHEEK, LESION . ALLERGIC/IMMUNO: ARE YOU ALLERGIC TO SHELLFISH OR IV DYE? NO . ANY NEW ALLERGIES? NO . PSYCHIATRIC: DO YOU HAVE THOUGHTS OF HURTING YOURSELF OR SOMEONE ELSE? NO . ARE YOU ABUSED, NEGLECTED, OR IN AN UNSAFE ENVIRONMENT? NO . ENDOCRINOLOGY: ARE YOU DIABETIC? YES . OTHER: DO YOU NEED ANY PRESCRIPTIONS? YES, PAIN PILLS . IF YES, PLEASE LIST: ____ . ANY NEW PROBLEMS WITH YOUR MEDICATIONS? NO . WHEN DID YOU LAST EAT? ____ . WHEN DID YOU LAST DRINK? ____ . WHAT DID YOU LAST DRINK? ____ . NAME OF PERSON DRIVING YOU HOME? ____ . DO YOU HAVE ANY OTHER QUESTIONS OR CONCERNS NO . SKIN: DO YOU HAVE ANY RASHES OR OPEN SORES? LEFT GREAT TOE . VITAL SIGNS WT 178.4 LBS, HT 67", BMI 27.94 INDEX, BP 127/64 MM HG, HR 58 /MIN, RR 18 /MIN, TEMP 98.3 F, OXYGEN SAT % 96%, SAFE IN ENV? (Y/N) Y, NA INITIALS SC 10:50, REVIEWED BY: LILIANA. EXAMINATION GENERAL EXAMINATION: PSYCHALERT , ORIENTED X 3 , APPROPRIATE MOOD AND AFFECT , HARD OF HEARING. FACE:LARGE BLACK SKIN LESION FROM NASOLABIAL FOLD ACROSS CHEEKAPPROX 3 CM IN DIAMETER. LUNGS:SCATTERED WHEEZES, DECREASED BREATH SOUNDS AT BASES. HEART:HEART RATE REGULAR. MUSCULOSKELETAL:PALPATION: POSITIVE FOR PAIN OVER L/S SPINE. POSITIVE FOR PAIN OVER L/S PARSPINALS. EXTREMITIES:LEFT FOOT- FERYTHEMA NOTED ALONG MEDIAL ASPECT OF LEFT GREAT TOE NAIL. NO DRAINAGE. BOTH FEET WARM, PINK HYPERSENSITIVE. 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 CLINICAL NOTES: ISTOP REGISTRY REVIEWED AND DEMNOSTRATES COMPLLIANCE. BRINGS IN MEDICATIONS WHICH IS APPROPRIATE FOR WHAT WAS DISPENSED. RECENT URINE TOXICOLOGY REVIEWED. NO UNAUTHORIZED MEDICATIONS. NO ILLICIT SUBSTANCES AND PRESCRIBED MEDICATIONS WERE PRESENT. PROCEDURE CODES FA211 ESTABILISHED PATIENT [facility] CHARGE DISPOSITION & COMMUNICATION FOLLOW UP 1 MONTH (REASON: LEG/BACK PAIN) ELECTRONICALLY SIGNED BY BRENNAN WOLFF ON 02/25/2017 AT 03:17 PM EDT DISCLAIMER : THIS IS A VISIT SUMMARY EXTRACTED FROM THE [employer] CHART. IT IS NOT A COPY OF THE [employer] PROGRESS NOTE. MTDD
== END ==
LOC: M PAIN 10:40
PROVIDERS: ATTEND Nurse Practitioner Family
DX: G89.29 Other chronic pain (principal); M54.42 Lumbago with sciatica, left side; M54.41 Lumbago with sciatica, right side; I73.9 Peripheral vascular disease, unspecified; E11.42 Type 2 diabetes mellitus with diabetic polyneuropathy; K21.9 Gastro-esophageal reflux disease without esophagitis; I25.2 Old myocardial infarction; J43.9 Emphysema, unspecified; I10 Essential (primary) hypertension; F17.200 Nicotine dependence, unspecified, uncomplicated; L98.9 Disorder of the skin and subcutaneous tissue, unspecified; Z79.01 Long term (current) use of anticoagulants; Z79.4 Long term (current) use of insulin; Z79.891 Long term (current) use of opiate analgesic; Z79.899 Other long term (current) drug therapy

== ENCOUNTER → 2017-03-07 | Outpatient (CLI) | payer SELFPAY ==
--- NOTE | 2017-03-26 00:45 | ECWPNPC ---
PATIENT NAME: IVON BARTON : 1955 GENDER: MALE VISIT DATE: 03/07/2017 DISCHARGE DATE: 03/07/17 1346 VISIT LOCKED DATE TIME: PHYSICIAN: RAMIN BENÍTEZ RESOURCE: RAMIN BENÍTEZ REASON FOR APPOINTMENT 1. LEG/BACK PAIN HISTORY OF PRESENT ILLNESS HISTORY OF PRESENT ILLNESS: PAIN THE PATIENT DESCRIBES THE PAIN... FALL RISK SCREENING: SCREENING :NO FALLS IN THE PAST YEAR TODAY'S VISIT: NOTES: PAIN LEVEL 6/10. DESCRIBES THE PAIN STINGING AND BURNING. PAIN IS CENTERED IN LOW BACK AND LEGSHAS CONTINUED TO HAVE ISSUES WITH VERY SORE AREAS OVER THE TOES AND AT THE LEFT GREAT TOENAIL. CURRENT MEDICATIONS TAKING AMIODARONE HCL 400 MG TABLET 2 TABLET ORALLY THREE TIMES DAILY, NOTES: PT NOT SURE OF DOSE OR FREQUENCY TAKING ATENOLOL 50 MG TABLET 1 TABLET ORALLY ONCE A DAY TAKING PANTOPRAZOLE SODIUM 40 MG TABLET DELAYED RELEASE 1 TABLET ORALLY BID TAKING DIGOXIN 250 MCG TABLET 1 TABLET ORALLY ONCE A DAY TAKING XARELTO 20 MG TABLET 1 TABLET WITH FOOD ORALLY ONCE A DAY TAKING TRESIBA FLEXTOUCH 100 UNIT/ML SOLUTION PEN-INJECTOR SUBCUTANEOUS TAKING MENS 50+ MULTI VITAMIN/MIN - TABLET ORALLY TAKING HUMALOG MIX 50/50 KWIKPEN (50-50) 100 UNIT/ML SUSPENSION SUBCUTANEOUS TAKING NORCO 5-325 MG TABLET 1 TABLET NEEDED ORALLY Q 6-8 HOURS PRN PAIN MDD=4 TAKING GABAPENTIN 800 MG TABLET 1 TABLET ORALLY THREE TIMES A DAY NOT-TAKING LIDOCAINE HCL 4 % SOLUTION DIRECTED EXTERNALLY APPLY SMALL AMOUNT TO PAINFUL AREAS OF FEET Q 6 HRS PRN PAIN NOT-TAKING NOVOLOG FLEXPEN 100 UNIT/ML SOLUTION PEN-INJECTOR SUBCUTANEOUS NOT-TAKING NEURONTIN 800 MG TABLET 1 TABLET ORALLY THREE TIMES A DAY NOT-TAKING ZETIA 10 MG TABLET 1 TABLET ORALLY ONCE A DAY NOT-TAKING ASPIRIN 325 MG TABLET DELAYED RELEASE 1 TABLET ORALLY ONCE A DAY NOT-TAKING TRAMADOL HCL 50 MG TABLET 1 TAB ORALLY EVERY 6 HOURS NEEDED/MMD#4 MEDICATION LIST REVIEWED AND RECONCILED WITH THE PATIENT PAST MEDICAL HISTORY NEURALGIA SLEEP DISTURBANCE VISION PROBLEMS 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 REVIEW OF SYSTEMS REVIEWED BY: PROVIDER: RAMIN RAMIREZ . CONSTITUTIONAL: ANY CHANGE IN YOUR MEDICAL CONDITION? NO . CHILLS NO . FEVER NO . INFECTION: DO YOU HAVE NEW INFECTIONS? NO . DO YOU HAVE HISTORY OF MRSA? NO . MUSCULOSKELETAL: ANY NEW PATTERNS OF PAIN OR NUMBNESS? NO . GASTROENTEROLOGY: ANY NEW CHANGE IN BOWEL CONTROL? NO . GENITOURINARY: ANY NEW CHANGE IN BLADDER CONTROL? NO . IS THERE A CHANCE YOU COULD BE ? NO . HEMATOLOGY/LYMPH: DO YOU TAKE ANY BLOOD THINNERS? (FOR EXAMPLE- COUMADIN, PLAVIX, AGGRENOX, PLATEL, PRADAXA, OR XARELTO) YES . WHEN WAS YOUR LAST DOSE? DATE: TIME: . NEUROLOGY: HAVE YOU FALLEN IN THE PAST 6 MONTHS? NO . ANY NEW EXTREMITY NUMBNESS OR WEAKNESS? NO . CARDIOLOGY: DO YOU HAVE A PACEMAKER OR DEFIBRILLATOR? NO . RESPIRATORY: HAVE YOU BEEN SICK IN THE PAST WEEK? NO . FEVER NO . FLU LIKE SYMPTOMS? NO . COUGH NO . INTEGUMENTARY: DO YOU HAVE ANY RASHES OR OPEN SORES? NO . ALLERGIC/IMMUNO: ARE YOU ALLERGIC TO SHELLFISH OR IV DYE? NO . ANY NEW ALLERGIES? NO . PSYCHIATRIC: DO YOU HAVE THOUGHTS OF HURTING YOURSELF OR SOMEONE ELSE? NO . ARE YOU ABUSED, NEGLECTED, OR IN AN UNSAFE ENVIRONMENT? NO . ENDOCRINOLOGY: ARE YOU DIABETIC? YES . OTHER: DO YOU NEED ANY PRESCRIPTIONS? YES . IF YES, PLEASE LIST: PAIN MED . ANY NEW PROBLEMS WITH YOUR MEDICATIONS? NO . WHEN DID YOU LAST EAT? ____ . WHEN DID YOU LAST DRINK? ____ . WHAT DID YOU LAST DRINK? ____ . NAME OF PERSON DRIVING YOU HOME? ____ . DO YOU HAVE ANY OTHER QUESTIONS OR CONCERNS NO . VITAL SIGNS WT 177.6 LBS, HT 67", BMI 27.81 INDEX, BP 89/49 MM HG, HR 64 /MIN, RR 16 /MIN, TEMP 97.6 F, OXYGEN SAT % 95%, NA INITIALS SC 12:59. EXAMINATION GENERAL EXAMINATION: PSYCHALERT , ORIENTED X 3 , APPROPRIATE MOOD AND AFFECT , HARD OF HEARING. FACE:LARGE BLACK SKIN LESION FROM NASOLABIAL FOLD ACROSS CHEEKAPPROX 3 CM IN DIAMETER. LUNGS:SCATTERED WHEEZES, DECREASED BREATH SOUNDS AT BASES. HEART:HEART RATE REGULAR,, II/ SYSTOLIC MURMUR. MUSCULOSKELETAL:PALPATION: POSITIVE FOR PAIN OVER L/S SPINE. POSITIVE FOR PAIN OVER L/S PARSPINALS. EXTREMITIES:LEFT FOOT- ERYTHEMA NOTED ALONG MEDIAL ASPECT OF LEFT GREAT TOE NAIL. NO DRAINAGE. BOTH FEET WARM, PINK HYPERSENSITIVE. 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 STOP SMOKING,TRIGGER POINT INJECTION MATERIAL WAS PRINTED. CLINICAL NOTES: ISTOP REGISTRY REVIEWED AND DEMNOSTRATES COMPLLIANCE (#[id number]). BRINGS IN MEDICATIONS WHICH IS APPROPRIATE FOR WHAT WAS DISPENSED. RECENT URINE TOXICOLOGY REVIEWED. NO UNAUTHORIZED MEDICATIONS. NO ILLICIT SUBSTANCES AND PRESCRIBED MEDICATIONS WERE PRESENT. DISCUSSED IN DEPTH EFFECTS OF TOBACCO/SMOKING ON THE CIRCULATION AND HEALING IN HIS LEGS. PREVENTIVE MEDICINE REVIEWED PRE PROCEDURE CARE AND TPI INJECTION / PT EXPRESSED UNDERSTANDING. PROCEDURE CODES FA211 ESTABILISHED PATIENT [facility] CHARGE DISPOSITION & COMMUNICATION FOLLOW UP AFTER INJECTION (REASON: CHECK AUTH FOR TPI) ELECTRONICALLY SIGNED BY BRENNAN WOLFF ON 03/24/2017 AT 08:53 AM EDT DISCLAIMER : THIS IS A VISIT SUMMARY EXTRACTED FROM THE [email or web address] CHART. IT IS NOT A COPY OF THE [email or web address] PROGRESS NOTE. JAVY
== END ==
LOC: M PAIN 13:00
PROVIDERS: ATTEND Nurse Practitioner Family
DX: M54.42 Lumbago with sciatica, left side (principal); M54.41 Lumbago with sciatica, right side; G89.29 Other chronic pain; E11.42 Type 2 diabetes mellitus with diabetic polyneuropathy; I73.9 Peripheral vascular disease, unspecified; Z79.4 Long term (current) use of insulin; Z79.891 Long term (current) use of opiate analgesic; Z79.01 Long term (current) use of anticoagulants; Z79.899 Other long term (current) drug therapy

== ENCOUNTER → 2017-03-20 | Outpatient (CLI) | payer SELFPAY | LOC: M PAIN 15:00 | PROVIDERS: ATTEND Anesthesiology | DX: Z53.29 Procedure and treatment not carried out because of patient's decision for other reasons (principal) ==

== ENCOUNTER → 2017-05-18 | Outpatient (CLI) | payer SELFPAY ==
--- NOTE | 2017-06-02 00:47 | ECWPNPC ---
PATIENT NAME: IVON BARTON : 1955 GENDER: MALE VISIT DATE: 05/18/2017 DISCHARGE DATE: 05/18/17 1354 VISIT LOCKED DATE TIME: PHYSICIAN: RAMIN BENÍTEZ RESOURCE: RAMIN BENÍTEZ REASON FOR APPOINTMENT 1. BACK AND LEG PAIN HISTORY OF PRESENT ILLNESS HISTORY OF PRESENT ILLNESS: PAIN THE PATIENT DESCRIBES THE PAIN... FALL RISK SCREENING: SCREENING :NO FALLS IN THE PAST YEAR TODAY'S VISIT: NOTES: RATES PAIN TODAY 8/10. DESCRIBES PAIN CONSTANT. PAIN IS CENTERED ACROSS THE LOW BACK AND INTO BOTH LEGS. REPORTS HAS INFECTIO IN RIGHT FOOT/TOE. IS SOAKING THE FOOT AND APPLYING HYDROGEN PEROXIDE. NOTES INCREASE IN PAIN IN THIS AREA. . CURRENT MEDICATIONS TAKING AMIODARONE HCL 400 MG TABLET 2 TABLET ORALLY TWO TIMES DAILY, NOTES: PT NOT SURE OF DOSE OR FREQUENCY TAKING ATENOLOL 50 MG TABLET 1 TABLET ORALLY ONCE A DAY TAKING PANTOPRAZOLE SODIUM 40 MG TABLET DELAYED RELEASE 1 TABLET ORALLY BID TAKING DIGOXIN 250 MCG TABLET 1 TABLET ORALLY ONCE A DAY TAKING XARELTO 20 MG TABLET 1 TABLET WITH FOOD ORALLY ONCE A DAY TAKING TRESIBA FLEXTOUCH 100 UNIT/ML SOLUTION PEN-INJECTOR 40 UNITS SUBCUTANEOUS DAILY TAKING MENS 50+ MULTI VITAMIN/MIN - TABLET 1 TAB ORALLY DAILY TAKING HUMALOG MIX 50/50 KWIKPEN (50-50) 100 UNIT/ML SUSPENSION PER SLIDING SCALE SUBCUTANEOUS 3-4 TIMES A DAY TAKING GABAPENTIN 800 MG TABLET 1 TABLET ORALLY THREE TIMES A DAY TAKING NORCO 5-325 MG TABLET 1 TABLET NEEDED ORALLY Q 6-8 HOURS PRN PAIN MDD=4 NOT-TAKING DULOXETINE HCL 30 MG CAPSULE DELAYED RELEASE PARTICLES 1 CAPSULE ORALLY DAILY, NOTES: HAS NOT STARTED NOT-TAKING LIDOCAINE HCL 4 % SOLUTION DIRECTED EXTERNALLY APPLY SMALL AMOUNT TO PAINFUL AREAS OF FEET Q 6 HRS PRN PAIN NOT-TAKING NOVOLOG FLEXPEN 100 UNIT/ML SOLUTION PEN-INJECTOR SUBCUTANEOUS NOT-TAKING NEURONTIN 800 MG TABLET 1 TABLET ORALLY THREE TIMES A DAY NOT-TAKING ZETIA 10 MG TABLET 1 TABLET ORALLY ONCE A DAY NOT-TAKING ASPIRIN 325 MG TABLET DELAYED RELEASE 1 TABLET ORALLY ONCE A DAY NOT-TAKING TRAMADOL HCL 50 MG TABLET 1 TAB ORALLY EVERY 6 HOURS NEEDED/MMD#4 MEDICATION LIST REVIEWED AND RECONCILED WITH THE PATIENT PAST MEDICAL HISTORY NEURALGIA SLEEP DISTURBANCE VISION PROBLEMS 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 SOCIAL HISTORY GENERAL: TOBACCO USE ARE YOU A:CURRENT SMOKER HOW MANY CIGARETTES A DAY DO YOU SMOKE?31 OR MORE HOW SOON AFTER YOU WAKE UP DO YOU SMOKE YOUR FIRST CIGARETTE?WITHIN 5 MIN HOW OFTEN DO YOU SMOKE CIGARETTES?EVERY DAY PATIENT COUNSELED ON THE DANGERS OF TOBACCO USE AND URGED TO QUIT:01/11/2017 ARE YOU INTERESTED IN QUITTING?NOT READY TO QUIT COUNSELED THE PATIENT ON SMOKING EFFECTS, EDUCATION [id number] ALCOHOL SCREENING DID YOU HAVE A DRINK CONTAINING ALCOHOL IN THE PAST YEAR?NO POINTS0 INTERPRETATIONNEGATIVE RECREATIONAL DRUG USE DRUG USE?NO CAFFEINE CAFFEINE USE?YES CHRISTIANITY [id number] NONE LANGUAGE LANGUAGES SPOKEN:PERSIAN LEARNING BARRIERS / SPECIAL NEEDS BARRIERS TO LEARNING?NO HEARING IMPAIRED?YES VISION IMPAIRED?YES COGNITIVELY IMPAIRED?NO READINESS TO LEARN?YES LEARNING PREFERENCES?NO LEARNING CAPABILITIES PRESENT?YES EMOTIONAL BARRIERS?NO SPECIAL DEVICES?YES :[employer]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 NEEDED?NO PAIN CLINIC PFS, CLERGY, PUBLIC HEALTH REFERRALS PFS REFERRAL NEEDED?NO CLERGY REFERRAL NEEDED?NO PUBLIC HEALTH REFERRAL NEEDED?NO HAS THE PATIENT BEEN EDUCATED REGARDING HIS/HER PLAN OF CARE?YES HAS THE PATIENT BEEN EDUCATED REGARDING PAIN, THE RISK FOR PAIN, THE IMPORTANCE OF EFFECTIVE PAIN MANAGEMENT, AND THE PAIN ASSESSMENT PROCESS?YES ADVANCE DIRECTIVES HEALTH CARE PROXY?NO WOULD YOU LIKE MORE INFORMATION?NO DO YOU HAVE A DNR?NO WOULD YOU LIKE MORE INFORMATION?NO LIVING WILL?NO WOULD YOU LIKE MORE INFORMATION?NO POWER OF DIATHERMY EQUIPMENT REPAIRER?NO WOULD YOU LIKE MORE INFORMATION?NO REVIEW OF SYSTEMS REVIEWED BY: PROVIDER: . CONSTITUTIONAL: ANY CHANGE IN YOUR MEDICAL CONDITION? NO . CHILLS NO . FEVER NO . INFECTION: DO YOU HAVE NEW INFECTIONS? NO . DO YOU HAVE HISTORY OF MRSA? NO . MUSCULOSKELETAL: ANY NEW PATTERNS OF PAIN OR NUMBNESS? NO . GASTROENTEROLOGY: GENERAL CONSTIPATION UNDER CONTROL . ANY NEW CHANGE IN BOWEL CONTROL? NO . GENITOURINARY: ANY NEW CHANGE IN BLADDER CONTROL? NO . IS THERE A CHANCE YOU COULD BE ? NO . HEMATOLOGY/LYMPH: DO YOU TAKE ANY BLOOD THINNERS? (FOR EXAMPLE- COUMADIN, PLAVIX, AGGRENOX, PLATEL, PRADAXA, OR XARELTO) YES, XARELTO . WHEN WAS YOUR LAST DOSE? DATE:05/18/17 TIME: 0900 . NEUROLOGY: HAVE YOU FALLEN IN THE PAST 6 MONTHS? NO . ANY NEW EXTREMITY NUMBNESS OR WEAKNESS? NO . CARDIOLOGY: DO YOU HAVE A PACEMAKER OR DEFIBRILLATOR? NO . RESPIRATORY: HAVE YOU BEEN SICK IN THE PAST WEEK? NO . FEVER NO . FLU LIKE SYMPTOMS? NO . COUGH NO . INTEGUMENTARY: DO YOU HAVE ANY RASHES OR OPEN SORES? YES, SPOT ON RIGHT SIDE OF FACE . ALLERGIC/IMMUNO: ARE YOU ALLERGIC TO SHELLFISH OR IV DYE? NO . ANY NEW ALLERGIES? NO . PSYCHIATRIC: DO YOU HAVE THOUGHTS OF HURTING YOURSELF OR SOMEONE ELSE? NO . ARE YOU ABUSED, NEGLECTED, OR IN AN UNSAFE ENVIRONMENT? NO . ENDOCRINOLOGY: ARE YOU DIABETIC? YES - VARIABLE 307 - 120 BS . OTHER: DO YOU NEED ANY PRESCRIPTIONS? NO . IF YES, PLEASE LIST: ____ . ANY NEW PROBLEMS WITH YOUR MEDICATIONS? NO . WHEN DID YOU LAST EAT? ____ . WHEN DID YOU LAST DRINK? ____ . WHAT DID YOU LAST DRINK? ____ . NAME OF PERSON DRIVING YOU HOME? ____ . DO YOU HAVE ANY OTHER QUESTIONS OR CONCERNS NO . VITAL SIGNS WT 179.6 LBS, HT 67", BMI 28.13 INDEX, BP 111/57 MM HG, HR 58 /MIN, RR 16 /MIN, TEMP 97.5 F, OXYGEN SAT % 96%, SAFE IN ENV? (Y/N) YES, NA INITIALS TL 1304, REVIEWED BY: OFELIA. EXAMINATION GENERAL EXAMINATION: PSYCHALERT , ORIENTED X 3 , APPROPRIATE MOOD AND AFFECT , HARD OF HEARING. FACE:LARGE BLACK SKIN LESION FROM NASOLABIAL FOLD ACROSS CHEEKAPPROX 3 CM IN DIAMETER. LUNGS:SCATTERED WHEEZES, DECREASED BREATH SOUNDS AT BASES. HEART:HEART RATE REGULAR,, II/ SYSTOLIC MURMUR. MUSCULOSKELETAL:PALPATION: POSITIVE FOR PAIN OVER L/S SPINE. POSITIVE FOR PAIN OVER L/S PARSPINALS. EXTREMITIES:BOTH FEET WARM, PINK HYPERSENSITIVE, , NO EDEMA. SKIN:LEFT GREAT TOE, OVER CALLUS, LATERAL EDGE, RED, EXQUISITELY PAINFUL. NO DRAINAGE TOES SHINEY. 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 PROCEDURE CODES FA211 ESTABILISHED PATIENT [facility] CHARGE DISPOSITION & COMMUNICATION FOLLOW UP 7 WEEKS (REASON: BACK/LEG PAIN) ELECTRONICALLY SIGNED BY BRENNAN WOLFF ON 06/01/2017 AT 06:17 PM EST DISCLAIMER : THIS IS A VISIT SUMMARY EXTRACTED FROM THE [employer] CHART. IT IS NOT A COPY OF THE [employer] PROGRESS NOTE. JAVY
== END ==
LOC: M PAIN 13:00
PROVIDERS: ATTEND Nurse Practitioner Family
DX: G89.29 Other chronic pain (principal); M54.42 Lumbago with sciatica, left side; M54.41 Lumbago with sciatica, right side; E11.42 Type 2 diabetes mellitus with diabetic polyneuropathy; I73.9 Peripheral vascular disease, unspecified; K21.9 Gastro-esophageal reflux disease without esophagitis; I25.2 Old myocardial infarction; F17.210 Nicotine dependence, cigarettes, uncomplicated; Z79.01 Long term (current) use of anticoagulants; Z79.4 Long term (current) use of insulin; Z79.891 Long term (current) use of opiate analgesic; Z79.899 Other long term (current) drug therapy

== ENCOUNTER → 2017-07-05 | Outpatient (CLI) | payer SELFPAY | LOC: M PAIN 13:00 | DX: M54.42 Lumbago with sciatica, left side (principal); M54.41 Lumbago with sciatica, right side; G89.29 Other chronic pain; E11.42 Type 2 diabetes mellitus with diabetic polyneuropathy; I73.9 Peripheral vascular disease, unspecified; I10 Essential (primary) hypertension; K21.9 Gastro-esophageal reflux disease without esophagitis; F17.210 Nicotine dependence, cigarettes, uncomplicated; I25.2 Old myocardial infarction; L08.9 Local infection of the skin and subcutaneous tissue, unspecified; Z79.891 Long term (current) use of opiate analgesic; Z79.2 Long term (current) use of antibiotics; Z79.4 Long term (current) use of insulin; Z79.899 Other long term (current) drug therapy | CPT/HCPCS: G0463 ==

== ENCOUNTER → 2017-08-25 | Outpatient (CLI) | payer SELFPAY | LOC: M PAIN 12:30 | DX: G89.29 Other chronic pain (principal); M54.42 Lumbago with sciatica, left side; M54.41 Lumbago with sciatica, right side; E11.42 Type 2 diabetes mellitus with diabetic polyneuropathy; I73.9 Peripheral vascular disease, unspecified; E66.3 Overweight; K21.9 Gastro-esophageal reflux disease without esophagitis; F17.210 Nicotine dependence, cigarettes, uncomplicated; R42 Dizziness and giddiness; G47.9 Sleep disorder, unspecified; Z85.828 Personal history of other malignant neoplasm of skin; Z79.01 Long term (current) use of anticoagulants; Z79.891 Long term (current) use of opiate analgesic; Z79.4 Long term (current) use of insulin; Z79.899 Other long term (current) drug therapy | CPT/HCPCS: G0463 ==

== ENCOUNTER → 2017-08-29 | Outpatient (CLI) | payer SELFPAY | END | disposition home or self-care (01) | LOC: M PAIN 10:00 | DX: G89.29 Other chronic pain (principal); M54.42 Lumbago with sciatica, left side; M54.41 Lumbago with sciatica, right side; E11.42 Type 2 diabetes mellitus with diabetic polyneuropathy; I73.9 Peripheral vascular disease, unspecified; K21.9 Gastro-esophageal reflux disease without esophagitis; J43.9 Emphysema, unspecified | CPT/HCPCS: G0463 ==

== ENCOUNTER → 2017-09-13 | Outpatient (REF) | payer SELFPAY ==
[2017-09-13 19:11] LABS: BLOOD UREA NITROGEN 22 MG/DL (7-18); CREATININE FOR GFR 1.32 MG/DL (0.70-1.30); GLOMERULAR FILTRATION RATE 58.9 (>49); GLUCOSE, FASTING 261 MG/DL (70-100); SODIUM LEVEL 138 MEQ/L (136-145)
[2017-09-13 19:12] LABS: ALBUMIN 3.4 GM/DL (3.2-5.2); ALBUMIN/GLOBULIN RATIO 0.81 (1.00-1.93); ALKALINE PHOSPHATASE 57 U/L (45-117); ALT/SGPT 41 U/L (12-78); ANION GAP 7 MEQ/L (8-16); AST/SGOT 24 U/L (7-37); BILIRUBIN,TOTAL 0.3 MG/DL (0.2-1.0); CALCIUM LEVEL 8.8 MG/DL (8.8-10.2); CARBON DIOXIDE LEVEL 27 MEQ/L (21-32); CHLORIDE LEVEL 104 MEQ/L (98-107); TOTAL PROTEIN 7.6 GM/DL (6.4-8.2)
[2017-09-13 19:16] LABS: ESTIMATED AVERAGE GLUCOSE 186 MG/DL (60-110); HEMOGLOBIN A1c 8.1 %; POTASSIUM SERUM 5.3 MEQ/L (3.5-5.1)
[2017-09-13 19:27] LABS: HEMATOCRIT 42.4 % (42.0-52.0); HEMOGLOBIN 12.7 g/dl (14.0-18.0); MEAN CORPUSCULAR HEMOGLOBIN 23.6 pg (27.0-33.0); MEAN CORPUSCULAR VOLUME 78.7 fl (80.0-96.0); PLATELET COUNT, AUTOMATED 324 10^3/uL (150-450); RED BLOOD COUNT 5.39 10^6/uL (4.30-6.10); RED CELL DISTRIBUTION WIDTH 22.3 % (11.5-14.5); WHITE BLOOD COUNT 10.9 10^3/uL (4.0-10.0)
== END ==
LOC: M LAB REF 18:22
DX: E11.621 Type 2 diabetes mellitus with foot ulcer (principal)

== ENCOUNTER → 2017-09-26 | Outpatient (CLI) | payer SELFPAY | LOC: M PAIN 13:00 | DX: M54.42 Lumbago with sciatica, left side (principal); M54.41 Lumbago with sciatica, right side; E11.42 Type 2 diabetes mellitus with diabetic polyneuropathy; I73.9 Peripheral vascular disease, unspecified; I48.91 Unspecified atrial fibrillation; I25.2 Old myocardial infarction; Z79.4 Long term (current) use of insulin; Z79.891 Long term (current) use of opiate analgesic; Z79.899 Other long term (current) drug therapy; Z88.8 Allergy status to other drugs, medicaments and biological substances | CPT/HCPCS: G0463 ==

== ENCOUNTER → 2017-10-16 | Outpatient (CLI) | payer SELFPAY ==
[~2017-10-16] MED LIST: HEPARIN 1,000 UNITS/ML 10ML VIAL (FOR RADIOLOGY& DIALYSIS ONLY) As Ordered; ISOVUE-300 61% 50ML VIAL (Q9967) As Ordered; MIDAZOLAM INJ 2 MG/2 ML VIAL (J2250) As Ordered; fentaNYL 100 MCG/2 ML INJECTION (J3010) As Ordered
== END | disposition home or self-care (01) ==
LOC: M IRPRO 07:08
DX: I71.6 Thoracoabdominal aortic aneurysm, without rupture (principal); L97.529 Non-pressure chronic ulcer of other part of left foot with unspecified severity
CPT/HCPCS: 36200